=== PATIENT | female | born 1980 | race African-American/Black ===

== ENCOUNTER 2017-01-27 22:05 | Emergency (ER) | payer MEDICAID ==
[~2017-01-27] VITALS: Ht 165.1 cm; Wt 68.0 kg
[2017-01-27 23:52] VITALS: BP 128/87
[2017-01-28] MEDS ORDERED: KEFLEX500 MG ORAL (00:18)
[2017-01-28 00:35] VITALS: BP 128/87
--- NOTE | 2017-01-28 03:47 | Emergency Room Report ---
History of Present Illness General Chief Complaint: Edema Source: Family Member Present Illness HPI 40-year-old female presents to ED for evaluation. Risk And Compliance Analytics Director at bedside states that patient has had left leg swelling x1 day. No trauma. Patient has MR. Patient denies any pain. Denies any fevers or chills. Denies any chest pain or shortness of breath. No other aggravating relieving factors. 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 Review of Systems All Other Systems: negative except mentioned in HPI Physical Exam Vital Signs Date Time Temp Pulse Resp B/P Pulse Ox O2 Delivery O2 Flow Rate FiO2 01/27/17 22:16 98.2 76 14 125/86 99 Room Air Sp02 EP Interpretation: reviewed, normal General Appearance: no apparent distress, alert, GCS 15, non-toxic Head: normocephalic Eyes: bilateral eye PERRL, bilateral eye normal inspection ENT: normal ENT inspection Neck: normal inspection Respiratory: chest non-tender, lungs clear, normal breath sounds, speaking full sentences Cardiovascular #1: regular rate, rhythm, no edema Gastrointestinal: normal inspection Rectal: deferred Genitourinary: no CVA tenderness Musculoskeletal: swelling - LLE Neurologic: alert, oriented x3, responsive, motor strength/tone normal, sensory intact, speech normal Psychiatric: normal inspection Skin: other - erythema left lower extremity Lymphatic: normal inspection Medical Decision Making Diagnostic Impression: Primary Impression: Edema Qualified Codes: R60.9 - Edema, unspecified ER Course Hospital Course 40-year-old female presents to ED with redness, swelling to left lower extremity Differential diagnoses include: Cellulitis, dermatitis, insect bite, abscess Clinical course Patient placed on stretcher. After initial history physical I ordered Doppler of left leg Doppler negative for DVT Findings likely consistent with cellulitis given the erythema. We will treat with antibiotics Diagnosis - edema stable and discharged to home with prescription for Keflex. Elevate, warm compresses. Instructed to followup with PMD. Instructed return to ED if symptoms recur or worsen CT/MRI/US Diagnostic Results CT/MRI/US Diagnostic Results : Imaging Test Ordered: Doppler US Impression negative for DVT Last Vital Signs Date Time Temp Pulse Resp B/P Pulse Ox O2 Delivery O2 Flow Rate FiO2 01/28/17 00:35 98.2 82 23 128/87 100 Room Air Status: improved Disposition: HOME, SELF-CARE Condition: Stable Scripts Cephalexin* (KEFLEX*) 500 Mg Capsule 500 MG ORAL EVERY 6 HOURS, #28 CAP 0 Refills Prov: ROSMERY MEEK M.D. 01/28/17 Referrals: NOT CHOSEN [facility]/,REFERRING (PCP) Departure Forms: Return to Work Return to Work Date: Feb 01, 2017 Work Restrictions: No Prolonged Standing Patient Instructions: Edema, Cellulitis, [id number] ROSMERY MEEK M.D. Jan 28, 2017 03:47
--- NOTE | 2017-01-29 12:41 | Diagnostic Imaging Report ---
APPROVED REPORT CPT Code: 15602 Present Symptoms Lower Extremity Pain: Left LEFT LEG: Venous imaging reveals a patent deep venous system. There is no evidence of thrombus within the femoral, popliteal or tibial segments. The greater saphenous vein is also within normal limits. Doppler indicates normal spontaneous flow within these segments.
== END 2017-01-28 00:35 | disposition home or self-care (01) ==
LOC: EDBD 22:36 → EMR 22:36
DX: R60.0 Localized edema (principal); M25.562 Pain in left knee
CPT/HCPCS: 93971; 99284

== ENCOUNTER 2019-07-22 22:02 | Emergency (ER) | payer MEDICAID ==
[~2019-07-22] VITALS: Ht 160 cm; Wt 72.6 kg
[~2019-07-22 22:02] MED LIST: KEFLEX500 MG ORAL
--- NOTE | 2019-07-22 22:14 | NUR ---
ED Nurse Note: PT CAME IN DUE TO LEFT FOOT PAIN X 1 WEEK. PER PT, HER LEFT FOOT/ACHILLES MUST HAVE BEEN HIT BY AN OBJECT. AAO X4 AND STILL ABLE TO AMBULATE.
[2019-07-22] MEDS ORDERED: Acetaminophen 500mg (ES) tab PO ONE (22:30)
[2019-07-22] MEDS ORDERED: TYLENOL EXTRA500 MG ORAL (22:48)
[2019-07-22 22:54] VITALS: BP 132/70
--- NOTE | 2019-07-22 22:54 | NUR ---
ER DISCHARGE NOTE: Patient is cleared to be discharged per ERMD, pt is aox4, on room air, with stable vital signs. pt was given dc and prescription instructions, pt was able to verbalize understanding, pt id band removed. pt is able to ambulate with steady gait. pt took all belongings and left with her family members.
--- NOTE | 2019-07-22 23:14 | Diagnostic Imaging Report ---
EXAM: XR Left Foot Complete, 3 Views CLINICAL HISTORY: PAIN TECHNIQUE: Frontal, lateral and oblique views of the left foot. COMPARISON: No relevant prior studies available. FINDINGS: Bones/joints: Posterior calcaneal bone spur. No acute fracture. No dislocation. Soft tissues: Unremarkable. No radiopaque foreign body. IMPRESSION: No definite plain film evidence for acute fracture or dislocation. If there is continued clinical concern for fracture, consider CT or MRI for further evaluation.
--- NOTE | 2019-07-22 23:16 | Diagnostic Imaging Report ---
EXAM: XR Left Ankle Complete, 3 Views CLINICAL HISTORY: PAIN TECHNIQUE: Frontal, lateral and oblique views of the left ankle. COMPARISON: No relevant prior studies available. FINDINGS: Bones/joints: A small ossific density is projected adjacent to the medial aspect of the talus on the oblique view. A subtle fracture cannot be excluded. Posterior calcaneal bone spur. No dislocation. Soft tissues: Question of some soft tissue swelling about the ankle. IMPRESSION: A small ossific density is projected adjacent to the medial aspect of the talus on the oblique view. A subtle fracture cannot be excluded.
--- NOTE | 2019-07-22 23:22 | Emergency Room Report ---
History of Present Illness General Chief Complaint: Lower Extremity Injury Source: Patient Present Illness HPI 38 yo F presents to ED c/o L heel pain. mother at bedside states that patient hit her L leg against a table 3 days ago. noted continued pain. 4/10 dull nonradiating. is able to walk but with pain. Other notes that patient does have developmental delay however is able to answer questions. Denies any other injuries. No other aggravating relieving factors. Denies any other associated symptoms Allergies: Coded Allergies: No Known Allergies (Unverified , 01/27/17) Patient History Past Medical History: other - developmental delay Past Surgical History: none Pertinent Family History: none Social History: Denies: smoking, alcohol use, drug use Last Menstrual Period: 07/06/19 Now: No Immunizations: UTD Reviewed Nursing Documentation: PMH: Agreed; PSxH: Agreed Nursing Documentation-PMH Past Medical History: No History, Except For History Of Psychiatric Problem: No Hx Neurological Problems: Yes Review of Systems All Other Systems: negative except mentioned in HPI Physical Exam Vital Signs Date Time Temp Pulse Resp B/P (MAP) Pulse Ox O2 Delivery O2 Flow Rate FiO2 07/22/19 22:04 98.2 93 13 135/86 (102) 98 Room Air Sp02 EP Interpretation: reviewed, normal General Appearance: no apparent distress, alert, GCS 15, non-toxic Head: normocephalic Eyes: bilateral eye normal inspection, bilateral eye PERRL ENT: normal ENT inspection Neck: normal inspection Respiratory: normal inspection Cardiovascular #1: normal inspection Gastrointestinal: normal inspection Rectal: deferred Genitourinary: no CVA tenderness Musculoskeletal: tender - L heel, other - negative harrington test L achilles Neurologic: alert, motor strength/tone normal, oriented x3, sensory intact, responsive, speech normal Psychiatric: other - developmental delay Skin: no rash Lymphatic: normal inspection Procedures Splinting Splinting : Consent: Verbal Pre-Made Type: DEJON wrap Pre-Proc Neuro Vasc Exam: normal Post-Proc Neuro Vasc Exam: normal Patient Tolerated: Well Complications: None Medical Decision Making Diagnostic Impression: Primary Impression: Heel pain Qualified Codes: M79.672 - Pain in left foot ER Course Hospital Course 38 yo F presents to ED c/o L heel pain Differential diagnoses include: Fracture, dislocation, sprain, contusion Clinical course Patient placed on stretcher. After initial history and physical, I ordered pain medications and Xrays of L foot/ankle On exam negative Mayen test. Xrays prelim read shows no acute fracture/dislocation. placed in dejon wrap I discussed findings with the mother. Likely Achilles injury but no clinical evidence of rupture. Dejon wrap applied. Mother declined crutches. Safe for discharge for close outpatient follow-up. I will provide Ortho referrals Diagnosis - heel pain Stable and discharged to home with prescription for tylenol. apply ice, keep elevated. weight bear as tolerated. Followup with PMD/ortho. Return to ED if symptoms recur or worsen Other X-Ray Diagnostic Results Other X-Ray Diagnostic Results #1: X-Ray ordered: L ankle # of Views/Limited Vs Complete: 3 View Indication: Pain EP Interpretation: Yes Interpretation: no dislocation, no soft tissue swelling, no fractures Impression: No acute disease Electronically Signed by: Electronically signed by Isma Loya MD Other X-Ray Diagnostic Results #2: X-Ray ordered: L foot # of Views/Limited Vs Complete: 3 View Indication: Pain EP Interpretation: Yes Interpretation: no dislocation, no soft tissue swelling, no fractures Impression: No acute disease Electronically Signed by: Electronically signed by Isma Loya MD Last Vital Signs Date Time Temp Pulse Resp B/P (MAP) Pulse Ox O2 Delivery O2 Flow Rate FiO2 07/22/19 22:54 98.6 80 16 132/70 100 Room Air Status: improved Disposition: HOME, SELF-CARE Condition: Stable Scripts Acetaminophen* (TYLENOL EXTRA STRENGTH*) 500 Mg Tablet 500 MG ORAL Q8H PRN for Prn Headache/Temp > 101, #30 TAB 0 Refills Prov: Isma Loya MD 07/22/19 [facility] Open 24 hour /7 days a week by Appointment Only [address] [facility] [address] Patient Instructions: Achilles Tendinitis With [facility] Isma Loya MD Jul 22, 2019 23:22
== END 2019-07-22 22:50 | disposition home or self-care (01) ==
LOC: EMR 22:25
DX: M79.672 Pain in left foot (principal); R62.50 Unspecified lack of expected normal physiological development in childhood
CPT/HCPCS: 73610; 73630; Z7502; 99284

== ENCOUNTER 2020-09-27 00:39 | Emergency (ER) | payer MEDICAID ==
[~2020-09-27] VITALS: Ht 165.1 cm; Wt 72.6 kg
[~2020-09-27 00:39] MED LIST changes: +TYLENOL EXTRA500 MG ORAL
--- NOTE | 2020-09-27 01:05 | NUR ---
Pte came to ER ambulatory c/o high blood pressure reported by family member. Will continue to monitor.
[2020-09-27 01:14] VITALS: BP 136/88
--- NOTE | 2020-09-27 01:18 | Emergency Room Report ---
History of Present Illness General Chief Complaint: Hypertension Source: Patient, Friend Present Illness HPI This is a 39-year-old female with a history of developmental delay and recent diagnosis of hypertension. She presents with chief complaint of hypertension. She was started on blood pressure medication 2 weeks ago. Her friend/client advocate took her blood pressure tonight and it was reading systolic 160-190. She did take her blood pressure medication 10 minutes prior to this reading. She has no symptoms. She was brought in here to be evaluated because her friend did not know if the blood pressure machine was accurate or not. It was given to her by her brother. Patient has no chest pain, shortness of breath, headache, dizziness or any other symptoms. 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 COVID-19 Screening: Negative COVID-19 COVID-19 Testing Source: [facility] Patient History Past Medical History: see triage record, old chart reviewed, HTN Past Surgical History: none Pertinent Family History: none Social History: Denies: smoking Last Menstrual Period: n/a Now: No Immunizations: other Reviewed Nursing Documentation: PMH: Agreed; PSxH: Agreed Nursing Documentation-PMH Past Medical History: No History, Except For Hx Hypertension: Yes Hx Neurological Problems: Yes Review of Systems Eye: Denies: eye pain, blurred vision ENT: Denies: ear pain, nose congestion, throat swelling Respiratory: Denies: cough, shortness of breath Cardiovascular: Denies: chest pain, palpitations Gastrointestinal: Denies: abdominal pain, diarrhea, nausea, vomiting Musculoskeletal: Denies: back pain, joint pain Skin: Denies: rash Neurological: Denies: headache, numbness Endocrine: Denies: increased thirst, increased urine Hematologic/Lymphatic: Denies: easy bruising All Other Systems: negative except mentioned in HPI Physical Exam Vital Signs Date Time Temp Pulse Resp B/P (MAP) Pulse Ox O2 Delivery O2 Flow Rate FiO2 09/27/20 00:54 98.2 77 18 137/88 (104) 97 Room Air Vitals unremarkable Sp02 EP Interpretation: reviewed, normal General Appearance: well appearing, no apparent distress, alert Head: normocephalic, atraumatic Eyes: bilateral eye PERRL, bilateral eye EOMI ENT: hearing grossly normal, normal pharynx Neck: full range of motion, supple, no meningismus Respiratory: chest non-tender, lungs clear, normal breath sounds Cardiovascular #1: regular rate, rhythm, no murmur Gastrointestinal: normal bowel sounds, non tender, no mass, no organomegaly, no bruit, non-distended Musculoskeletal: back normal, normal range of motion, gait/station normal Psychiatric: mood/affect normal Medical Decision Making Diagnostic Impression: Primary Impression: Hypertension Qualified Codes: I10 - Essential (primary) hypertension ER Course Patient presents with. Blood pressure slightly elevated here. She is asymptomatic. I see no evidence of endorgan damage. Will discharge home with reassurance and recommendation for lifestyle changes/dietary changes. Last Vital Signs Date Time Temp Pulse Resp B/P (MAP) Pulse Ox O2 Delivery O2 Flow Rate FiO2 09/27/20 01:13 74 17 Room Air 09/27/20 00:54 98.2 137/88 (104) 97 Status: improved Disposition: HOME, SELF-CARE Condition: Stable Referrals: BENJAMIN HERNÁNDEZ,REFERRING (PCP) Additional Instructions: Continue with your high blood pressure medication. Decrease salt intake and fried food. Follow-up with your doctor in 7 days but return if symptoms worsen. Julio C Cadet MD Sep 27, 2020 01:18
[2020-09-27 01:38] VITALS: BP 136/89
--- NOTE | 2020-09-27 01:43 | NUR ---
Patient was discharge home as EDP ordered. All vital signs were taken within normal range. instructions were given to the patient . Patient verbalized understanding. patient left the hospital in stable condition .
== END 2020-09-27 01:38 | disposition home or self-care (01) ==
LOC: EMR 00:52
DX: I10 Essential (primary) hypertension (principal); R62.50 Unspecified lack of expected normal physiological development in childhood
CPT/HCPCS: 99281